=== PATIENT | female | born 1975 | race Two or more races ===

== ENCOUNTER 2017-09-17 14:27 | Inpatient (IN) | payer MEDICAID ==
[~2017-09-17] VITALS: Ht 144.8 cm; Wt 37.2 kg
[2017-09-17 15:13] LABS: Basophils # (auto) 0 uL; Basophils % (auto) 0.6 % (0.0-2.0); Eosinophils # (auto) 0.4 uL; Eosinophils % (auto) 5.5 % (0.0-7.0); Hematocrit 39.7 % (36.0-46.0); Hemoglobin 13.4 g/dL (12.2-16.2); Lymphocytes # (auto) 1.9 uL; Lymphocytes % (auto) 23.6 % (10.0-50.0); Mean Corpuscular Hemoglobin 31.4 pg (28.0-32.0); Mean Corpuscular Hgb Conc. 33.8 g/dL (32.0-36.0); Mean Corpuscular Volume 92.7 fL (80.0-100.0); Monocytes # (auto) 0.6 uL; Monocytes % (auto) 7.5 % (0.0-12.0); Neutrophils % (auto) 62.8 % (37.0-80.0); Nucleated Red Blood Cells % 0.1 %; Platelet Count (auto) 264 10^3/uL (140-450); Red Blood Cells 4.29 10^6/uL (4.0-5.20); Red Cell Distribution Width 13.1 % (11.8-14.3)
[2017-09-17 15:36] LABS: Alanine Aminotransferase 59 U/L (13-56); Albumin 3.6 g/dL (3.4-5.0); Alkaline Phosphatase 75 U/L (45-117); Amylase 61 U/L (25-115); Anion Gap 8 (5-15); Aspartate Aminotransferase 36 U/L (15-37); BUN/Creatinine Ratio 16.2; Bilirubin, Total 0.3 mg/dL (0.2-1.0); Blood Urea Nitrogen 6 mg/dL (7-18); Carbon Dioxide 22 mmol/L (21-32); Chloride 111 mmol/L (98-107); GFR African American 249 mL/min; GFR Non-African American 206 mL/min; Glucose 92 mg/dL (74-106); Lipase 125 U/L (73-393); Magnesium 2.6 mg/dL (1.6-2.6); Potassium 3.3 mmol/L (3.5-5.1); Sodium 141 mmol/L (136-145); Total Protein 7.5 g/dL (6.4-8.2)
[2017-09-17] MEDS ORDERED: SODIUM CHLORIDE 0.9% 1,000 ML IVB ONE (20:12)
[2017-09-17] MEDS ORDERED: MORPHINE SULFATE 4 MG/ML SYR/VIAL IV ONE (20:15)
[2017-09-17] MEDS ORDERED: ONDANSETRON HCL 4 MG/2 ML VIAL IV ONE (20:15)
[2017-09-17 21:01] LABS: Urine Bacteria NONE SEEN /hpf (None Seen); Urine Blood Negative /uL (Negative); Urine Mucus FEW (None Seen); Urine Specific Gravity 1.024 (1.001-1.035); Urine WBC 1 /hpf (0 - 5)
[2017-09-17 21:37] LABS: INR 0.95 (0.9-1.15); Partial Thromboplastin Time 27.1 sec (22.64-33.71); Prothrombin Time 10.3 sec (9.37-12.3)
[2017-09-17] MEDS ORDERED: POTASSIUM CHL 20 Meq TABLET PO ONE (22:15)
[2017-09-17] MEDS ORDERED: HYDROcodone-ACET 10/325MG TAB PO ONE (22:15)
[2017-09-18] MEDS ORDERED: LORazepam 2MG/ML-1ML VIAL IV ONE
[2017-09-18] MEDS ORDERED: PANTOPRAZOLE 40 MG/10 ML VIAL IV ONE (03:15)
[2017-09-18] MEDS ORDERED: ONDANSETRON HCL 4 MG/2 ML VIAL IV ONE (03:45)
[2017-09-18] MEDS ORDERED: HYDROcodone-ACET 5/325MG TAB PO PRN (07:00)
[2017-09-18] MEDS ORDERED: ONDANSETRON HCL 4 MG/2 ML VIAL IV PRN (07:00)
[2017-09-18] MEDS ORDERED: ACETAMINOPHEN 500 MG TAB PO PRN (07:00)
[2017-09-18 07:26] LABS: Basophils # (auto) 0 uL; Basophils % (auto) 0.2 % (0.0-2.0); Eosinophils # (auto) 0.1 uL; Eosinophils % (auto) 0.5 % (0.0-7.0); Hematocrit 38.4 % (36.0-46.0); Hemoglobin 12.9 g/dL (12.2-16.2); Lymphocytes % (auto) 9.2 % (10.0-50.0); Mean Corpuscular Hemoglobin 31.5 pg (28.0-32.0); Mean Corpuscular Hgb Conc. 33.5 g/dL (32.0-36.0); Monocytes # (auto) 0.3 uL; Monocytes % (auto) 2.4 % (0.0-12.0); Neutrophils # (auto) 9.4 uL; Neutrophils % (auto) 87.7 % (37.0-80.0); Platelet Count (auto) 261 10^3/uL (140-450); Red Blood Cells 4.08 10^6/uL (4.0-5.20); Red Cell Distribution Width 13.2 % (11.8-14.3); White Blood Cell 10.7 10^3/uL (4.4-10.8)
[2017-09-18 07:36] LABS: Calcium 8.2 mg/dL (8.5-10.1); Potassium 4.2 mmol/L (3.5-5.1)
[2017-09-18] MEDS: SODIUM CHLORIDE 0.9% 1,000 ML IV SCH ×2 (07:50→17:45)
[2017-09-18 09:00] VITALS: BP 97/71
[2017-09-18] MEDS ORDERED: INFLUENZA QUAD 2017-2018 0.5 ML SYRG IM ONE (09:45)
[2017-09-18] MEDS ORDERED: PNEUMOCOCCAL VACC POLYS 25 MCG/0.5 ML VIAL IM ONE (09:45)
[2017-09-18] MEDS: MORPHINE SULFATE 4 MG/ML SYR/VIAL IV PRN ×2 (09:53→16:46)
[2017-09-18 11:20] VITALS: BP 97/71
[2017-09-18 13:00] VITALS: BP 101/65
[2017-09-18 17:00] VITALS: BP 106/73
== END 2017-09-18 18:40 | disposition home or self-care (01) | DRG 392 ==
LOC: ER 14:27 → OVERFLOW 14:28 → TELE-WESTW 09-18 09:09
PROVIDERS: ADMIT Nurse Practitioner Family; ATTEND Family Medicine
DX: K21.9 Gastro-esophageal reflux disease without esophagitis (principal); E83.51 Hypocalcemia; K76.0 Fatty (change of) liver, not elsewhere classified; R10.9 Unspecified abdominal pain; E87.6 Hypokalemia; R79.89 Other specified abnormal findings of blood chemistry; R74.8 Abnormal levels of other serum enzymes; E78.5 Hyperlipidemia, unspecified
CPT/HCPCS: 36415; 71046; 74176; 76705; 80048; 80053; 81001; 81025; 82150; 83690; 83735; 84484; 85025; 85610; 85730; 93005; 94761; 96361; 96374; 96375; C9113; G0378; J2405